=== PATIENT | female | born 1950 | race Caucasian/White ===

== ENCOUNTER → 2016-11-12 | Outpatient (CLI) | payer MEDICARE, BC | LOC: RAD 07:45 | PROVIDERS: ATTEND Internal Medicine Medical Oncology | DX: C56.1 Malignant neoplasm of right ovary (principal); C56.2 Malignant neoplasm of left ovary; N18.3 Chronic kidney disease, stage 3 (moderate) | CPT/HCPCS: 71260; 74177 ==

== ENCOUNTER 2016-11-26 10:56 | Emergency (ER) | payer MEDICARE, BC ==
--- NOTE | 2016-11-26 11:33 | ER Document Report ---
ED Medical Screen (RME) - General Stated Complaint: KNEE PAIN Time seen by provider: 11:29 Mode of Arrival: Wheelchair Information source: Patient Notes: 66-year-old female presents to ED for pain in her left knee that is locked in the extended position. Has a history of ovarian cancer and is on chemotherapy off and on for 20 years this time since 2012. Saturday morning she bent her knee was in excruciating pain in her had to straighten it out for her she states it has been straightened out since then and she cannot bend now put any weight on it. Patient states she did not take any of her pain medicine this medicine this morning. States she can wait to she gets seen by a doctor in the back. She states she fell 3 steps in August and 2 weeks ago she's fell down 2 steps in the garage bumping down on her but I have greeted and performed a rapid initial assessment of this patient. A comprehensive ED assessment and evaluation of the patient, analysis of test results and completion of medical decision making process will be conducted by an additional ED providers. TRAVEL OUTSIDE OF THE [place] IN LAST 30 DAYS: No - Related Data Allergies/Adverse Reactions: erythromycin base [Erythromycin Base] Allergy (Severe, Verified 12/24/13 09:26) Hives Iodinated Contrast Media - Oral and [IV Dye, Iodine Containing] Allergy (Mild, Verified 12/24/13 09:26) Hives Past Medical History - Past Medical History Cardiac Medical History: Reports: Hx Coronary Artery Disease, Hx Hypertension Denies: Hx Congestive Heart Failure, Hx Heart Attack, Hx Hypercholesterolemia , Hx Peripheral Vascular Disease, Hx Pulmonary Embolism, Hx Heart Murmur Pulmonary Medical History: Denies: Hx Asthma, Hx Bronchitis, Hx COPD, Hx Pneumonia, Hx Respiratory Failure, Hx Sleep Apnea, Hx Tuberculosis Neurological Medical History: Denies: Hx Cerebrovascular Accident, Hx Seizures Renal/ Medical History: Reports: Hx Ovarian Cysts. Denies: Hx Pelvic Inflammatory Disease Malignancy Medical History: Reports: Hx Ovarian Cancer - Stage III. Denies: Hx Breast Cancer, Hx Cervical Cancer, Hx Leukemia, Hx Lung Cancer GI Medical History: Reports: Hx Ulcer. Denies: Hx Crohn's Disease, Hx Gastroesophageal Reflux Disease, Hx Hiatal Hernia, Hx Irritable Bowel, Hx Liver Failure Musculoskeltal Medical History: Denies Hx Arthritis - scattered, Denies Hx Fibromyalgia, Denies Hx Multiple Sclerosis, Denies Hx Muscular Dystrophy Psychiatric Medical History: Reports: Hx Depression - Escitalopram Denies: Hx Bipolar Disorder, Hx Dementia, Hx Post Traumatic Stress Disorder, Hx Schizophrenia Traumatic Medical History: Denies: Hx Fractures Infectious Medical History: Denies: Hx HIV Past Surgical History: Reports: Hx Appendectomy - 1995, Hx Bowel Surgery - colon resection, Hx Hysterectomy. Denies: Hx Section, Hx Cholecystectomy, Hx Colostomy, Hx Coronary Artery Bypass Graft, Hx Gastric Bypass Surgery, Hx Herniorrhaphy, Hx Mastectomy, Hx Pacemaker, Hx Tonsillectomy , Hx Tubal Ligation - Immunizations Hx Diphtheria, Pertussis, Tetanus Vaccination: Yes Physical Exam - Vital signs Vitals: Temp Pulse Resp BP Pulse Ox 98.2 F 88 20 145/89 H 97 11/26/16 11:28 11/26/16 11:28 11/26/16 11:28 11/26/16 11:28 11/26/16 11:28 Course - Vital Signs Vital signs: Temp Pulse Resp BP Pulse Ox 98.2 F 88 20 145/89 H 97 11/26/16 11:28 11/26/16 11:28 11/26/16 11:28 11/26/16 11:28 11/26/16 11:28
[2016-11-26] MEDS ORDERED: HYDROCODONE/ACETAMINOPHEN 5-325 MG TABLET PO ONE (14:34)
--- NOTE | 2016-11-26 14:35 | ER Document Report ---
ED General - General Chief Complaint: Knee Pain Stated Complaint: KNEE PAIN Mode of Arrival: Wheelchair Information source: Patient Notes: Patient is a 66 year old female who presents with left knee pain that started suddenly on Saturday while sitting down to eat breakfast. She denies any falls or injury to knee at the time of pain onset but does endorse falling on steps 2 weeks ago (she slipped down 2 steps, landing on her buttock) and also in August. She states the pain is worse with ambulation and in flexion of the left knee. She holds the left knee in extended position. Of note, she has history of ovarian cancer with intermittent periods of remission and was recently started on PO tamoxifen for chemotherapy. She has PO oxycodone at home but has not taken any today. She endorses associated swelling but denies any redness, warmth, numbness or tingling. TRAVEL OUTSIDE OF THE [place] IN LAST 30 DAYS: No - Related Data Allergies/Adverse Reactions: erythromycin base [Erythromycin Base] Allergy (Severe, Verified 11/26/16 11:31) Hives Iodinated Contrast Media - Oral and [IV Dye, Iodine Containing] Allergy (Mild, Verified 11/26/16 11:31) Hives Past Medical History - General Information source: Patient - Social History Smoking Status: Never Smoker Chew tobacco use (# tins/day): No Frequency of alcohol use: None Drug Abuse: None Family History: Reviewed & Not Pertinent Patient has suicidal ideation: No Patient has homicidal ideation: No - Past Medical History Cardiac Medical History: Reports: Hx Coronary Artery Disease, Hx Hypertension Denies: Hx Congestive Heart Failure, Hx Heart Attack, Hx Hypercholesterolemia , Hx Peripheral Vascular Disease, Hx Pulmonary Embolism, Hx Heart Murmur Pulmonary Medical History: Denies: Hx Asthma, Hx Bronchitis, Hx COPD, Hx Pneumonia, Hx Respiratory Failure, Hx Sleep Apnea, Hx Tuberculosis Neurological Medical History: Denies: Hx Cerebrovascular Accident, Hx Seizures Renal/ Medical History: Reports: Hx Ovarian Cysts. Denies: Hx Peritoneal Dialysis, Hx Pelvic Inflammatory Disease Malignancy Medical History: Reports: Hx Ovarian Cancer - Stage III. Denies: Hx Breast Cancer, Hx Cervical Cancer, Hx Leukemia, Hx Lung Cancer GI Medical History: Reports: Hx Ulcer. Denies: Hx Crohn's Disease, Hx Gastroesophageal Reflux Disease, Hx Hiatal Hernia, Hx Irritable Bowel, Hx Liver Failure Musculoskeltal Medical History: Denies Hx Arthritis - scattered, Denies Hx Fibromyalgia, Denies Hx Multiple Sclerosis, Denies Hx Muscular Dystrophy Psychiatric Medical History: Reports: Hx Depression - Escitalopram Denies: Hx Bipolar Disorder, Hx Dementia, Hx Post Traumatic Stress Disorder, Hx Schizophrenia Traumatic Medical History: Denies: Hx Fractures Infectious Medical History: Denies: Hx HIV Past Surgical History: Reports: Hx Appendectomy - 1995, Hx Bowel Surgery - colon resection, Hx Hysterectomy. Denies: Hx Section, Hx Cholecystectomy, Hx Colostomy, Hx Coronary Artery Bypass Graft, Hx Gastric Bypass Surgery, Hx Herniorrhaphy, Hx Mastectomy, Hx Pacemaker, Hx Tonsillectomy , Hx Tubal Ligation - Immunizations Hx Diphtheria, Pertussis, Tetanus Vaccination: Yes Review of Systems - Review of Systems Constitutional: No symptoms reported EENT: No symptoms reported Cardiovascular: No symptoms reported Respiratory: No symptoms reported Gastrointestinal: No symptoms reported Genitourinary: No symptoms reported Female Genitourinary: No symptoms reported Musculoskeletal: See HPI Skin: No symptoms reported Hematologic/Lymphatic: No symptoms reported Neurological/Psychological: No symptoms reported Physical Exam - Vital signs Vitals: Temp Pulse Resp BP Pulse Ox 98.2 F 88 20 145/89 H 97 11/26/16 11:28 11/26/16 11:28 11/26/16 11:28 11/26/16 11:28 11/26/16 11:28 Interpretation: Hypertensive - Notes Notes: PHYSICAL EXAM: CONSTITUTIONAL: Alert and oriented, well-appearing and in no acute distress. HENT: Normocephalic, atraumatic. Moist mucous membranes. HEART: Regular rate and rhythm without murmurs. LUNGS: CTAB and equal. No wheezes, rales or rhonchi. EXTREMITIES: Left knee - tender to palpation along lateral collateral ligament and within popliteal fossa with associated swelling to same lateral portion of knee and within popliteal fossa. No erythema, warmth, effusion or deformity noted. AROM extremely painful and limited in flexion. Positive varus and valgus stress for pain. Distal pulses intact. Negative for calf tenderness or compartment syndrome. All other extremities - Normal range of motion, no pitting edema. No cyanosis. Cap Refill <3 seconds. NEURO: Cranial nerves grossly intact. Normal sensory/motor exams. SKIN: Warm and dry. Normal turgor. No rashes or lesions noted. Course - Re-evaluation Re-evalutation: 11/26/16 14:43 Patient seen and evaluated. Left knee tender to palpation along LCL and in popliteal fossa but no evidence of cellulitis, compartment syndrome or evidence of SVT/DVT. Negative calf tenderness and distal pulses intact. Xray reviewed - shows small joint effusion but no other bony abnormalities. Given PO pain medication here, knee immobilizer and advised ortho follow-up. At this time, will discharge with return precautions and follow-up recommendations. Verbal discharge instructions given at the bedside and opportunity for questions given. Medication warnings reviewed. Patient is in agreement with this plan and has verbalized understanding of return precautions and the need for primary care follow-up in the next 24-72 hours. - Vital Signs Vital signs: Temp Pulse Resp BP Pulse Ox 97.8 F 76 18 137/96 H 96 11/26/16 14:59 11/26/16 14:59 11/26/16 14:59 11/26/16 14:59 11/26/16 14:59 - Diagnostic Test Radiology reviewed: Image reviewed, Reports reviewed Procedures - Immobilization Left Knee Pre-Proc Neuro Vasc Exam: Normal Immobilizer type: Knee immobilizer Performed by: PCT Post-Proc Neuro Vasc Exam: Normal Alignment checked and good: Yes Discharge - Discharge Clinical Impression: Joint effusion of knee Left knee sprain Qualifiers: Encounter type: initial encounter Involved ligament of knee: lateral collateral ligament Qualified Code(s): S83.422A - Sprain of lateral collateral ligament of left knee, initial encounter Condition: Stable Disposition: HOME, SELF-CARE Additional Instructions: We recommend that you follow-up with orthopedics - contact information has been provided. The knee pain/arthralgia could be a side effect of your medication for chemotherapy - be sure to discuss this with your oncology doctors. You can continue to take the pain medication prescribed at home for you. Knee Effusion You have a fluid collection in the knee joint, called an effusion. This fluid build up can occur from irritation of the synovial membrane lining the knee joint or from a more serious injury to the knee. Irritation of the membrane can occur from excessive, repetitive knee activitiy, like kneeling or squatting for extended periods or even just excessive walking, jogging, or skiing. Effusions also can occur with infections in the joint and with some arthritic conditions, especially gout. Fluid collections in these situations are usually yellow in color and either clear or cloudy in appearance. Significant injury to the knee can result in fluid collection which is partly or entirely blood and this condition is known as a hemarthrosis of the knee joint. If the fluid collection is not too large and/or painful, it can be managed conservatively with rest, ice packs, and anti-inflammatory and pain medications as needed. If the fluid collection is large and very painful, the knee joint can be drained (aspirated) by a relatively minor procedure of inserting a needle in the joint and removing some or all of the fluid present. If your knee was aspirated, you should rest it as much as possible for a few days, keep a pressure dressing around the knee and apply ice packs for at least 48 - 72 hours. If there are signs of developing infection such as heat and redness of the knee, fever, etc. you should return immediately for a recheck. Knee Immobilizing Splint The knee immobilizing splint will protect the injury while healing begins. This type of splint does not allow the knee to bend at all. No running or sports will be possible. If the splint allows painfree walking, it's giving adequate protection. If there is still significant pain, crutches may be needed as well. Don't do anything that hurts. Adjusted the splint, if necessary. The stiffeners on the sides are attached with Velcro, so they can be easily moved to adjust for thigh and calf size. If you need help with these adjustments, come back. You will lose muscle strength in the thigh while using this splint. The doctor will advise you if it's safe to do isometric knee exercises while you use it. Return immediately for any new or worsening symptoms. Follow-up with primary care provider, call tomorrow to make followup appointment. Prescriptions: Prednisone [Deltasone 20 mg Tablet] 3 tab PO DAILY 5 Days Forms: Elevated Blood Pressure Referrals: JOHN UGALDE MD [Primary Care Provider] - Follow up in 1 week KELBY THOMPSON MD [ACTIVE STAFF] - Follow up in 3-5 days (Call today to schedule follow-up appointment)
[2016-11-26 15:02] VITALS: BP 137/96
== END 2016-11-26 15:12 | disposition home or self-care (01) ==
LOC: ER 10:56
DX: S83.422A Sprain of lateral collateral ligament of left knee, initial encounter (principal); M25.469 Effusion, unspecified knee; M25.562 Pain in left knee; W10.9XXA Fall (on) (from) unspecified stairs and steps, initial encounter; Z85.43 Personal history of malignant neoplasm of ovary
CPT/HCPCS: 99283; 73562; L1830; A9270

== ENCOUNTER → 2016-12-06 | Outpatient (CLI) | payer MEDICARE, BC | LOC: RAD 07:50 | PROVIDERS: ATTEND Orthopaedic Surgery | DX: M25.561 Pain in right knee (principal); M25.461 Effusion, right knee; M71.21 Synovial cyst of popliteal space [Baker], right knee ==

== ENCOUNTER → 2017-01-03 | Outpatient (CLI) | payer MEDICARE, BC | LOC: OD 13:37 | PROVIDERS: ATTEND Internal Medicine Medical Oncology | DX: M79.675 Pain in left toe(s) (principal); M79.662 Pain in left lower leg; M79.89 Other specified soft tissue disorders ==

== ENCOUNTER → 2017-04-26 | Outpatient (CLI) | payer MEDICARE, BC ==
--- NOTE | 2017-04-29 08:27 | WOMENS IMAGING REPORT ---
EXAM DESCRIPTION: BILAT SCREENING MAMMO W/CAD COMPLETED DATE/TIME: 04/26/2017 11:27 am REASON FOR STUDY: ROUTINE SCREENING; Z12.31 Z12.31 ENCNTR SCREEN MAMMOGRAM FOR MALIGNANT NEOPLASM O F DION COMPARISON: Multiple since 2010 TECHNIQUE: Standard craniocaudal and mediolateral oblique views of each breast recorded using Geoforcea l acquisition. LIMITATIONS: None. FINDINGS: No masses, calcifications or architectural distortion. No areas of suspicion. Read with the assistance of CAD. .[facility] - R2 Cenova Version 1.3 .[facility] - R2 Cenova Version 1.3 .[facility] - R2 Cenova Version 2.4 .[facility] [place] R2 Cenova Version 2.4 .[facility] - R2 Machine Guide Base Winder Version 9.2 IMPRESSION: NORMAL MAMMOGRAM. BIRADS 1. BREAST DENSITY: a. The breasts are almost entirely fatty. BIRAD: 1 NEGATIVE RECOMMENDATION: ROUTINE SCREENING Please consider bilateral screening tomosynthesis in April 2018 COMMENT: The patient has been notified of the results by letter per SA requirements. Additional no tification policies are in place for contacting patient with suspicious or incomplete findings. Quality ID #[id number]: The [employer] recommends an annual screening mammogram for women aged 40 years or over. This facility utilizes a reminder system to ensure that all patients receive reminder letters, and/or direct phone calls for appointments. This includes reminders for routine scr eening mammograms, diagnostic mammograms, or other Breast Imaging Interventions when appropriate. Th is patient will be placed in the appropriate reminder system. The [employer] (ACR) has developed recommendations for screening MRI of the breast s in certain patient populations, to be used in conjunction with mammography. Breast MRI surveillanc e may be appropriate for women with more than 20% lifetime risk of developing breast cancer as deter mined by genetic testing, significant family history of the disease, or history of mantle radiation f or Hodgkins Disease. ACR Practice Guidelines 2008. TECHNICAL DOCUMENTATION: FINDING NUMBER: (1) ASSESSMENT: (1) JOB ID: [id number] [employer]- All Rights Reserved
== END ==
LOC: WI 11:25
PROVIDERS: ATTEND Internal Medicine
DX: Z12.31 Encounter for screening mammogram for malignant neoplasm of breast (principal)
CPT/HCPCS: 77067; G0202

== ENCOUNTER → 2017-06-30 | Outpatient (CLI) | payer MEDICARE, BC ==
--- NOTE | 2017-07-01 13:20 | RADIOLOGY REPORT (SQ) ---
EXAM DESCRIPTION: PET CT SKULL/THIGH COMPLETED DATE/TIME: 06/30/2017 8:17 pm REASON FOR STUDY: OVARIAN CANCER C56.9 MALIGNANT NEOPLASM OF UNSPECIFIED OVARY COMPARISON: CT chest abdomen and pelvis 11/12/2016 PET-CT exams 10/28/2015, 09/27/2013 RADIONUCLIDE AND DOSE: 12.4 mCi F18 FDG The route of agent administration: Intravenous FASTING BLOOD SUGAR: 96 mg/dl CONTRAST TYPE AND DOSE: No CT contrast given. TECHNIQUE: Blood glucose level was verified. Above dose of FDG was injected intravenously. 2-D seg mented attenuation correction images were obtained from the base of the skull to the midthighs. Nonc ontrast CT images were obtained for attenuation correction and fusion with emission images. CT image s were performed without oral or intravenous contrast and are not sensitive for parenchymal lesions. A series of overlapping emission PET images were obtained. Images reviewed and manipulated at [facility] work station by the radiologist. Images stored on PACS. LIMITATIONS: None. FINDINGS: HEAD AND NECK: There is a punctate focus of increased metabolic activity along the right l ower posterior molar tooth likely a periapical tooth root abscess, with SUV 5.2. CHEST: No areas of abnormal metabolic activity in the chest. ABDOMEN AND PELVIS: A 7 x 5.8 cm caudate mass is present, with SUV 9.1 (was 1.7 cm diameter on 11/13/[address]) A left upper quadrant peritoneal implant is present adjacent to multiple surgical clips on axial imag e 129. This measures 2.7 x 2.3 cm in size with SUV of 9 (was 1.8 cm diameter on 11/12/2016). A right upper quadrant peritoneal implant is present along the gastrocolic ligament axial image 132, measuring 1.4 cm in diameter with SUV 3.2 (was 0.6 cm in size on 11/12/2016). A right upper quadrant peritoneal implant is present adjacent to the gallbladder neck on axial image 135. This measures 2.4 cm in greatest diameter with SUV 4.7 (was 11 mm diameter on 11/12/2016). PROXIMAL LOWER EXTREMITIES: No areas of abnormal metabolic activity in the soft tissues of the lower extremities. BONES: No abnormal metabolic activity in the visualized skeleton. ADDITIONAL CT FINDINGS: Degenerative changes throughout the spine. Mild coronary artery calcificatio n. Right partial colectomy and appendectomy. Hysterectomy. Right-sided permanent central line tip superior vena cava. OTHER: Liver background activity 2.8 SUV. Blood pool background activity 2.0 SUV. IMPRESSION: Progression of disease in the caudate lobe liver. Increasing size of metabolically active upper abdominal peritoneal implants. TECHNICAL DOCUMENTATION: JOB ID: [id number] [employer]- All Rights Reserved
== END ==
LOC: RAD 17:40
PROVIDERS: ATTEND Internal Medicine Medical Oncology
DX: C56.9 Malignant neoplasm of unspecified ovary (principal)
CPT/HCPCS: 78815; A9552

== ENCOUNTER → 2017-09-18 | Outpatient (CLI) | payer MEDICARE, BC ==
--- NOTE | 2017-09-18 10:56 | RADIOLOGY REPORT (SQ) ---
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 COMPARISON: 11/12/2016. PET-CT from June 2017. TECHNIQUE: CT scan of the chest performed using helical scanning technique with dynamic intravenous contrast injection. Images reviewed with lung, soft tissue and bone windows. Reconstructed coronal a nd sagittal MPR images reviewed. All images stored on PACS. All CT scanners at this facility use dose modulation, iterative reconstruction, and/or weight based d osing when appropriate to reduce radiation dose to as low as reasonably achievable (ALARA). [facility]: Dose Right [facility]: CareDose [facility]: Dose Right [facility]: Teradose 4D [facility]: Fair and Square RADIATION DOSE: CT Rad equipment meets quality standard of care and radiation dose reduction techniq ues were employed. CTDIvol: 5.3 - 8.7 mGy. DLP: 1102 mGy-cm.. LIMITATIONS: None. FINDINGS: AXILLAE: No enlarged or grossly abnormal nodes. subcentimeter nodes. CHEST WALL: No masses. No subcutaneous air. LUNGS: Grossly nonprogressive 4 mm right middle lobe pulmonary nodule. PLEURA: No effusions. No calcifications. THYROID: No masses or significant asymmetry. HILAR AND MEDIASTINAL STRUCTURES: No identified masses or abnormal nodes. AORTA AND GREAT VESSELS: No aneurysm. No dissection. PULMONARY ARTERIES: No identified pulmonary emboli. Study not optimized for the pulmonary arteries. HEART: No pericardial effusion. HARDWARE AND LIFELINES: Right port. BONES: No significant finding. OTHER: No other significant finding. IMPRESSION: 1. No developing thoracic pathology. Stable chest. COMPARISON: As above. RADIATION DOSE: CT Rad equipment meets quality standard of care and radiation dose reduction techniq ues were employed. CTDIvol: 5.3 - 8.7 mGy. DLP: 1102 mGy-cm.mGy. TECHNIQUE: CT scan of the abdomen and pelvis performed with intravenous and oral contrast using tico jc scanning technique with dynamic intravenous contrast injection. Images reviewed with lung, soft tissue and bone windows. Reconstructed coronal and sagittal MPR images reviewed. Delayed images for evaluation of the urinary system also acquired and evaluated. All images stored on PACS. All CT scanners at this facility use dose modulation, iterative reconstruction, and/or weight based d osing when appropriate to reduce radiation dose to as low as reasonably achievable (ALARA). [facility]: Dose Right [facility]: SureCare [facility]: Dose Right [facility]: Teradose 4D [facility]: [employer] FINDINGS: LIVER: Large central liver lesion now measures 6.3 x 7.3 cm AP by transverse dimension sli ghtly progressive in size. Mild heterogeneous early liver perfusion. There are new tiny subcentimet er liver lesions. 2 in the right lobe liver dome, segment 8 and 1 in the lateral aspect of the left lobe, segment 3. No developing duct dilatation. 1.7 cm short axis portal node. Subcentimeter gastr ohepatic ligament nodes. SPLEEN: Normal size. No focal lesions. PANCREAS: No masses. No significant calcifications. No adjacent inflammation or peripancreatic flui d collections. Pancreatic duct not dilated. GALLBLADDER: No identified stones by CT criteria. No inflammatory changes to suggest cholecystitis. ADRENAL GLANDS: No significant masses or asymmetry. RIGHT KIDNEY AND URETER: No solid masses. No significant calcification. No hydronephrosis or hydroure ter. LEFT KIDNEY AND URETER: No solid masses. No significant calcification. No hydronephrosis or hydrouret er. AORTA AND VESSELS: No aortic aneurysm or dissection. Patent major arterial branches. No gross venou s clot detected. IVC is attenuated by the central liver mass but with no proximal distention to sugg est overt obstruction. RETROPERITONEUM: No retroperitoneal adenopathy, hemorrhage or masses. LARGE AND SMALL BOWEL: Slight wall thickening throughout the descending and sigmoid colon may be lata fact and related to underdistention. No mechanical bowel obstruction or focal mass. No ascites. Th ere is a solid-appearing implant in the left upper quadrant with associated surgical clips once again noted. This measures up to 2.7 cm in transverse dimension, stable. Other subtle implants also look grossly stable in the upper abdomen. APPENDIX: Surgically absent. ABDOMINAL WALL: Minimal right lower quadrant small bowel containing hernia. No abdominal wall mass e vident. PERITONEAL CAVITY: As above. PELVIS: No mass or free fluid. Normal bladder. BONES: No significant or acute findings. OTHER: No other significant finding. IMPRESSION: 1. Progressing liver disease. The central liver mass looks slightly larger and there a re subcentimeter new liver lesions peripherally, 2 in the right lobe and 1 in the lateral segment lef t lobe as described above. Magallanes images of these lesions are saved to PACS. 2. Chronic implants/fabby opathy, relatively stable. TECHNICAL DOCUMENTATION: JOB ID: [id number] Quality ID # [id number]: Final reports with documentation of one or more dose reduction techniques (e.g., Au tomated exposure control, adjustment of the mA and/or kV according to patient size, use of iterative reconstruction technique) 2010 [employer]- All Rights Reserved
== END ==
LOC: RAD 09:34
PROVIDERS: ATTEND Internal Medicine Medical Oncology
DX: C56.1 Malignant neoplasm of right ovary (principal); C56.2 Malignant neoplasm of left ovary; K76.89 Other specified diseases of liver
CPT/HCPCS: 71260; 74177; 82565

== ENCOUNTER → 2017-12-19 | Outpatient (CLI) | payer MEDICARE, BC ==
--- NOTE | 2017-12-19 12:21 | RADIOLOGY REPORT (SQ) ---
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 Images reviewed with lung, soft tissue and bone windows. Reconstructed coronal a nd sagittal MPR images reviewed. All images stored on PACS. CT scan of the abdomen and pelvis performed with intravenous and with oral contrastusing helical scan jazmine technique with dynamic intravenous contrast injection. Images reviewed with lung, soft tissue a nd bone windows. Reconstructed coronal and sagittal MPR images reviewed. Delayed images for evaluat ion of the urinary system also acquired and evaluated. All images stored on PACS. All CT scanners at this facility use dose modulation, iterative reconstruction, and/or weight based d osing when appropriate to reduce radiation dose to as low as reasonably achievable (ALARA). [facility]: Dose Right [facility]: CareDose [facility]: Dose Right [facility]: Teradose 4D [facility]: [employer] RADIATION DOSE: CT Rad equipment meets quality standard of care and radiation dose reduction techniq ues were employed. CTDIvol: 4.4 - 6.5 mGy. DLP: 839 mGy-cm. . LIMITATIONS: None. FINDINGS: CHEST: LUNGS AND PLEURA: No opacities, nodules, masses. No pneumothorax. No effusions. HILAR AND MEDIASTINAL STRUCTURES: No identified masses or abnormal nodes. HEART AND VASCULAR STRUCTURES: No aneurysm or dissection. No central pulmonary emboli. No pericardi al effusion. HARDWARE: Right permanent central line tip superior vena cava THYROID AND OTHER SOFT TISSUES: No masses. No adenopathy. BONES: No significant finding. OTHER: No other significant finding. ABDOMEN AND PELVIS: LIVER: Progression of liver disease as compared to CT exam 09/18/2017, with index lesions as follows: The caudate lobe liver lesion on image 19 currently measures 10 x 9.5 cm in size, with narrowing of t he hepatic vena cava (was 6.3 x 7.3 cm on 09/18/2017). Right lobe sub- diaphragmatic surface 2.4 cm nodule image 15 (was 1 cm in size on 09/18/2017) Left lobe liver 3.4 cm nodule near the falciform ligament image 24 (this is new compared to 09/18/2017 ) SPLEEN: Normal size. No focal lesions. PANCREAS: No masses. No significant calcifications. No adjacent inflammation or peripancreatic fluid collections. Pancreatic duct not dilated. GALLBLADDER: No identified stones by CT criteria. No inflammatory changes to suggest cholecystitis. ADRENAL GLANDS: No significant masses or asymmetry. RIGHT KIDNEY AND URETER: No solid masses. No significant calcification. No hydronephrosis or hydroure ter. LEFT KIDNEY AND URETER: No solid masses. No significant calcification. No hydronephrosis or hydrouret er. AORTA AND VESSELS: No aneurysm. No dissection. Renal arteries, SMA, celiac without stenosis. RETROPERITONEUM: No retroperitoneal adenopathy, hemorrhage or masses. BOWEL AND PERITONEAL CAVITY: There are peritoneal implants in the upper abdomen. In the left upper q uadrant, along surgical clips there is a 3.3 x 2.8 cm implant on image 26 (Was 2.8 x 2.4 cm on 018). In the right upper quadrant, a peritoneal implant 2.5 x 1.6 cm in size is present on axial image 29 ( was 1.4 x 1.2 cm on 09/18/2017). Post right hemicolectomy with anastomotic briana. Patient drank oral contrast without bowel obstruc tion. No ascites. No mesenteric adenopathy. APPENDIX: Surgically absent ABDOMINAL WALL: No masses. No hernias. PELVIS: No mass or free fluid. Normal bladder. Post total hysterectomy. BONES: No significant or acute findings. OTHER: No other significant finding. IMPRESSION: No CT evidence of metastatic ovarian cancer to the chest Progression of metastatic lesions in the liver and peritoneal implants in the right and left upper qu adrant as compared to 09/18/2017. TECHNICAL DOCUMENTATION: JOB ID: [id number] Quality ID # 436: Final reports with documentation of one or more dose reduction techniques (e.g., Au tomated exposure control, adjustment of the mA and/or kV according to patient size, use of iterative reconstruction technique) 2010 [employer]- All Rights Reserved Reading location - IP/workstation name: [email or web address] TACTICAL ANALYSIS [email or web address]
== END ==
LOC: RAD 07:57
PROVIDERS: ATTEND Internal Medicine Medical Oncology
DX: C56.1 Malignant neoplasm of right ovary (principal); C56.2 Malignant neoplasm of left ovary; C78.7 Secondary malignant neoplasm of liver and intrahepatic bile duct
CPT/HCPCS: 71260; 74177

== ENCOUNTER → 2018-02-24 | Outpatient (CLI) | payer MEDICARE, BC ==
--- NOTE | 2018-02-24 12:05 | RADIOLOGY REPORT (SQ) ---
EXAM DESCRIPTION: CT CHEST WITH; CT ABD/PELVIS WITH IV ORAL COMPLETED DATE/TIME: 02/24/2018 10:57 am REASON FOR STUDY: OVARIAN CA (C56.1) C56.1 MALIGNANT NEOPLASM OF RIGHT OVARY COMPARISON: PET-CT 06/30/2017 CT chest abdomen pelvis 09/18/2017, 12/19/2017 CONTRAST TYPE AND DOSE: contrast/concentration: Isovue 370.00 mg/ml; Total Contrast Delivered: 74.0 ml; Total Saline Delivered: 66.0 ml RENAL FUNCTION: Creatinine 1.1 TECHNIQUE: CT scan of the chest performed using helical scanning technique with dynamic intravenous contrast injection. Images reviewed with lung, soft tissue and bone windows. Reconstructed coronal a nd sagittal MPR images reviewed. All images stored on PACS. CT scan of the abdomen and pelvis performed with intravenous and with oral contrastusing helical scan jazmine technique with dynamic intravenous contrast injection. Images reviewed with lung, soft tissue a nd bone windows. Reconstructed coronal and sagittal MPR images reviewed. Delayed images for evaluat ion of the urinary system also acquired and evaluated. All images stored on PACS. All CT scanners at this facility use dose modulation, iterative reconstruction, and/or weight based d osing when appropriate to reduce radiation dose to as low as reasonably achievable (ALARA). [facility]: Dose Right [facility]: CareDose [facility]: Dose Right [facility]: Teradose 4D [facility]: [employer] RADIATION DOSE: CT Rad equipment meets quality standard of care and radiation dose reduction techniq ues were employed. CTDIvol: 4.4 - 5.7 mGy. DLP: 733 mGy-cm. . LIMITATIONS: None. FINDINGS: CHEST: LUNGS AND PLEURA: No worrisome pulmonary nodules. No focal infiltrates. No pleural effusion or pneu mothorax. HILAR AND MEDIASTINAL STRUCTURES: No identified masses or abnormal nodes. HEART AND VASCULAR STRUCTURES: No aneurysm or dissection. No central pulmonary emboli. No pericardi al effusion. HARDWARE: Right jugular central line tip superior vena cava THYROID AND OTHER SOFT TISSUES: No masses. No adenopathy. BONES: No significant finding. OTHER: No other significant finding. ABDOMEN AND PELVIS: LIVER: There are multiple liver lesions for metastatic disease, increased compared to 12/19/2017. Ind ex lesions are as follows: 11 x 10 cm mass in the caudate encases the main portal vein and celiac artery with mild vascular narr owing (was 10 x 10 cm 12/19/2017, 7 x 7 cm 09/18/2017). Main portal vein is patent on today's study. Right lobe sub- diaphragmatic surface 3 cm in size (was 2.4 cm on 12/19/2017). SPLEEN: Normal size. No focal lesions. PANCREAS: No masses. No significant calcifications. No adjacent inflammation or peripancreatic fluid collections. Pancreatic duct not dilated. GALLBLADDER: No identified stones by CT criteria. No inflammatory changes to suggest cholecystitis. ADRENAL GLANDS: No significant masses or asymmetry. RIGHT KIDNEY AND URETER: No solid masses. No significant calcification. No hydronephrosis or hydroure ter. LEFT KIDNEY AND URETER: No solid masses. No significant calcification. No hydronephrosis or hydrouret er. AORTA AND VESSELS: No aneurysm. No dissection. Renal arteries, SMA, celiac without stenosis. RETROPERITONEUM: No retroperitoneal adenopathy, hemorrhage or masses. BOWEL AND PERITONEAL CAVITY: There are peritoneal implants which are increased in size compared to pr evious studies. In the right upper quadrant, a 3.3 x 2 cm peritoneal implant is present just ventral to the gastric antrum (was 3.2 x 2.7 cm 12/19/2017). In the left upper quadrant, a 3.5 x 3 cm perito martínez implant is present (was 3.2 x 2.7 cm in size on 12/19/2017). No ascites. No free intraperitonea l air or fluid. Patient did drink oral contrast, no CT evidence of bowel obstruction. Small bowel e nterotomy is, with an nonobstructed contrast filled loops of small bowel in the mid abdomen unchanged prior studies. Surgical clips along the ascending colon from old right partial hemicolectomy, stabl e. APPENDIX: Surgically absent ABDOMINAL WALL: No masses. No hernias. PELVIS: Post hysterectomy. No free pelvic fluid. No pelvic masses or adenopathy. Bladder unremarka ble. BONES: No significant or acute findings. OTHER: No other significant finding. IMPRESSION: Increase in size of liver metastatic lesions and peritoneal implants compared to previou s exams. Large mass along the caudate lobe liver causes narrowing of the main portal vein, similar compared to previous studies. Currently no portal venous thrombosis is present. NORMAL CT OF THE ABDOMEN AND PELVIS WITH ORAL AND INTRAVENOUS CONTRAST. TECHNICAL DOCUMENTATION: JOB ID: [id number] Quality ID # 436: Final reports with documentation of one or more dose reduction techniques (e.g., Au tomated exposure control, adjustment of the mA and/or kV according to patient size, use of iterative reconstruction technique) 2010 [employer] All Rights Reserved Reading location - IP/workstation name: [email or web address]
== END ==
LOC: RAD 08:05
PROVIDERS: ATTEND Internal Medicine Medical Oncology
DX: C56.1 Malignant neoplasm of right ovary (principal)
CPT/HCPCS: 71260; 74177

== ENCOUNTER → 2018-04-30 | Outpatient (CLI) | payer MEDICARE, BC ==
--- NOTE | 2018-04-30 11:59 | RADIOLOGY REPORT (SQ) ---
EXAM DESCRIPTION: CT CHEST WITHOUT; CT ABD/PELVIS ORAL ONLY COMPLETED DATE/TIME: 04/30/2018 11:36 am REASON FOR STUDY: OVARIAN CANCER C56.1 MALIGNANT NEOPLASM OF RIGHT OVARY COMPARISON: 02/24/2018. 12/19/2017. TECHNIQUE: CT scan of the chest performed without intravenous contrast using helical scanning techni que. Images reviewed with lung, soft tissue and bone windows. Reconstructed coronal and sagittal MPR images reviewed. All images stored on PACS. All CT scanners at this facility use dose modulation, iterative reconstruction, and/or weight based d osing when appropriate to reduce radiation dose to as low as reasonably achievable (ALARA). [facility]: Dose Right [facility]: CareDose [facility]: Dose Right [facility]: TerDogie 4D [facility]: [employer] RADIATION DOSE: CT Rad equipment meets quality standard of care and radiation dose reduction techniq ues were employed. CTDIvol: 4.4 - 4.6 mGy. DLP: 397 mGy-cm. mGy. LIMITATIONS: None. FINDINGS: AXILLAE: No adenopathy. CHEST WALL: No masses. No subcutaneous air. LUNGS: Stable scattered subcentimeter pulmonary nodules bilaterally. No developing lesions. No lily s progression. PLEURA: No effusions. No calcifications. THYROID: No masses or significant asymmetry. HILAR AND MEDIASTINAL STRUCTURES: No identified masses or abnormal nodes. AORTA AND GREAT VESSELS: No aneurysm. HEART: Normal size. No pericardial effusion. Moderate coronary calcification. HARDWARE AND LIFELINES: Right port. BONES: No significant finding. OTHER: No other significant finding. IMPRESSION: 1. Stable CT chest. Includes tiny pulmonary nodules which are nonprogressive. COMPARISON: As above. TECHNIQUE: CT scan of the abdomen and pelvis performed without intravenous contrast and withoral con trast using helical scanning technique with dynamic intravenous contrast injection. Images reviewed with lung, soft tissue and bone windows. Reconstructed coronal and sagittal MPR images reviewed. Al l images stored on PACS. All CT scanners at this facility use dose modulation, iterative reconstruction, and/or weight based d osing when appropriate to reduce radiation dose to as low as reasonably achievable (ALARA). [facility]: Dose Right [facility]: SureCare [facility]: Dose Right [facility]: Teradose 4D [facility]: [employer] RADIATION DOSE: CT Rad equipment meets quality standard of care and radiation dose reduction techniq ues were employed. CTDIvol: 4.4 - 4.6 mGy. DLP: 397 mGy-cm.mGy. LIMITATIONS: None. FINDINGS: LIVER: Numerous liver lesions are relatively stable allowing for noncontrast technique. L argest central liver lesion measures over 10 cm maximally, as before. Limited ability to assess for change without contrast on today's study. SPLEEN: No developing lesions. PANCREAS: No masses. No significant calcifications. No adjacent inflammation or peripancreatic flui d collections. Pancreatic duct not dilated. GALLBLADDER: Contracted. ADRENAL GLANDS: No significant masses or asymmetry. RIGHT KIDNEY AND URETER: No solid masses. Assessment limited by lack of IV contrast. No significant c alcification. No hydronephrosis or hydroureter. LEFT KIDNEY AND URETER: No solid masses. Assessment limited by lack of IV contrast. No significant ca lcification. No hydronephrosis or hydroureter. AORTA AND VESSELS: No aneurysm. RETROPERITONEUM: No retroperitoneal adenopathy, hemorrhage or masses. APPENDIX: Not visualized. LARGE AND SMALL BOWEL: No evidence of overt bowel obstruction. No ascites or abnormal gas. Nodular implants along the upper abdomen look grossly Stable. ABDOMINAL WALL: No significant bowel containing hernia. PERITONEAL CAVITY: As above. PELVIS: No mass or free fluid. Normal bladder. BONES: No acute or suspicious findings. OTHER: No other significant finding. IMPRESSION: 1. Relatively stable appearance of the abdomen pelvis allowing for noncontrast techniqu e. Numerous liver metastatic lesions. Peritoneal implants in the upper abdomen are probably similar as well. No developing bowel or urinary obstruction. TECHNICAL DOCUMENTATION: JOB ID: [id number] Quality ID # 436: Final reports with documentation of one or more dose reduction techniques (e.g., Au tomated exposure control, adjustment of the mA and/or kV according to patient size, use of iterative reconstruction technique) 2010 [employer]- All Rights Reserved Reading location - IP/workstation name: [email or web address] [id number]
--- NOTE | 2018-04-30 11:59 | RADIOLOGY REPORT (SQ) ---
EXAM DESCRIPTION: CT CHEST WITHOUT; CT ABD/PELVIS ORAL ONLY COMPLETED DATE/TIME: 04/30/2018 11:36 am REASON FOR STUDY: OVARIAN CANCER C56.1 MALIGNANT NEOPLASM OF RIGHT OVARY COMPARISON: 02/24/2018. 12/19/2017. TECHNIQUE: CT scan of the chest performed without intravenous contrast using helical scanning techni que. Images reviewed with lung, soft tissue and bone windows. Reconstructed coronal and sagittal MPR images reviewed. All images stored on PACS. All CT scanners at this facility use dose modulation, iterative reconstruction, and/or weight based d osing when appropriate to reduce radiation dose to as low as reasonably achievable (ALARA). [facility]: Dose Right [facility]: CareDose [facility]: Dose Right [facility]: TerVestore 4D [facility]: [employer] RADIATION DOSE: CT Rad equipment meets quality standard of care and radiation dose reduction techniq ues were employed. CTDIvol: 4.4 - 4.6 mGy. DLP: 397 mGy-cm. mGy. LIMITATIONS: None. FINDINGS: AXILLAE: No adenopathy. CHEST WALL: No masses. No subcutaneous air. LUNGS: Stable scattered subcentimeter pulmonary nodules bilaterally. No developing lesions. No lily s progression. PLEURA: No effusions. No calcifications. THYROID: No masses or significant asymmetry. HILAR AND MEDIASTINAL STRUCTURES: No identified masses or abnormal nodes. AORTA AND GREAT VESSELS: No aneurysm. HEART: Normal size. No pericardial effusion. Moderate coronary calcification. HARDWARE AND LIFELINES: Right port. BONES: No significant finding. OTHER: No other significant finding. IMPRESSION: 1. Stable CT chest. Includes tiny pulmonary nodules which are nonprogressive. COMPARISON: As above. TECHNIQUE: CT scan of the abdomen and pelvis performed without intravenous contrast and withoral con trast using helical scanning technique with dynamic intravenous contrast injection. Images reviewed with lung, soft tissue and bone windows. Reconstructed coronal and sagittal MPR images reviewed. Al l images stored on PACS. All CT scanners at this facility use dose modulation, iterative reconstruction, and/or weight based d osing when appropriate to reduce radiation dose to as low as reasonably achievable (ALARA). [facility]: Dose Right [facility]: SureCare [facility]: Dose Right [facility]: Teradose 4D [facility]: [employer] RADIATION DOSE: CT Rad equipment meets quality standard of care and radiation dose reduction techniq ues were employed. CTDIvol: 4.4 - 4.6 mGy. DLP: 397 mGy-cm.mGy. LIMITATIONS: None. FINDINGS: LIVER: Numerous liver lesions are relatively stable allowing for noncontrast technique. L argest central liver lesion measures over 10 cm maximally, as before. Limited ability to assess for change without contrast on today's study. SPLEEN: No developing lesions. PANCREAS: No masses. No significant calcifications. No adjacent inflammation or peripancreatic flui d collections. Pancreatic duct not dilated. GALLBLADDER: Contracted. ADRENAL GLANDS: No significant masses or asymmetry. RIGHT KIDNEY AND URETER: No solid masses. Assessment limited by lack of IV contrast. No significant c alcification. No hydronephrosis or hydroureter. LEFT KIDNEY AND URETER: No solid masses. Assessment limited by lack of IV contrast. No significant ca lcification. No hydronephrosis or hydroureter. AORTA AND VESSELS: No aneurysm. RETROPERITONEUM: No retroperitoneal adenopathy, hemorrhage or masses. APPENDIX: Not visualized. LARGE AND SMALL BOWEL: No evidence of overt bowel obstruction. No ascites or abnormal gas. Nodular implants along the upper abdomen look grossly Stable. ABDOMINAL WALL: No significant bowel containing hernia. PERITONEAL CAVITY: As above. PELVIS: No mass or free fluid. Normal bladder. BONES: No acute or suspicious findings. OTHER: No other significant finding. IMPRESSION: 1. Relatively stable appearance of the abdomen pelvis allowing for noncontrast techniqu e. Numerous liver metastatic lesions. Peritoneal implants in the upper abdomen are probably similar as well. No developing bowel or urinary obstruction. TECHNICAL DOCUMENTATION: JOB ID: [id number] Quality ID # 436: Final reports with documentation of one or more dose reduction techniques (e.g., Au tomated exposure control, adjustment of the mA and/or kV according to patient size, use of iterative reconstruction technique) 2010 [employer]- All Rights Reserved Reading location - IP/workstation name: [email or web address] [id number]
== END ==
LOC: RAD 09:00
PROVIDERS: ATTEND Internal Medicine Medical Oncology
DX: C56.1 Malignant neoplasm of right ovary (principal)
CPT/HCPCS: 71250; 74176

== ENCOUNTER 2018-05-07 09:07 | Outpatient (CLI) | payer MEDICARE, BC ==
[~2018-05-07 09:07] MED LIST: CARBOPLATIN IV PRN; DIPHENHYDRAMINE HCL 50 MG/ML VIAL IV PRN; FAMOTIDINE INJ/PF 20 MG/2 ML SDV IV PRN; NORMAL SALINE 250 ML IV PRN; NORMAL SALINE IV PRN
[2018-05-07 09:34] VITALS: BP 95/55
== END 2018-05-07 14:30 | disposition home or self-care (01) ==
LOC: II 09:07 → 5TH 09:12 → II 14:30
PROVIDERS: ATTEND Internal Medicine Medical Oncology
PROC: 3E04305 Introduction of Other Antineoplastic into Central Vein, Percutaneous Approach (ICD-10-PCS; principal; 2018-05-07)
PROC: 3E043GC Introduction of Other Therapeutic Substance into Central Vein, Percutaneous Approach (ICD-10-PCS; 2018-05-07)
DX: Z51.11 Encounter for antineoplastic chemotherapy (principal); C56.9 Malignant neoplasm of unspecified ovary; C80.0 Disseminated malignant neoplasm, unspecified
CPT/HCPCS: 96413; 96415; 96375; J1200; J9045 ×2; J7050; S0028